=== PATIENT | male | born 2000 | race American Indian/Alaskan Native ===

== ENCOUNTER 2024-05-24 23:58 | Emergency (ER) | payer OTHER ==
[~2024-05-24] VITALS: Ht 188 cm; Wt 159.2 kg
[2024-05-25] MEDS ORDERED: AMOX-115 PO (00:35)
[2024-05-25 00:39] VITALS: BP 147/87; PULSE 102; RESP 16; TEMP 98.4; O2SAT 97
[2024-05-25] MEDS: amox tr/potassium clavulanate 500mg/125mg TAB PO ONE (00:48)
[2024-05-25] MEDS: ondansetron 4mg rapidly disintigrating tab PO ONE (00:48)
[2024-05-25] MEDS: TETanus/Pertussis (Acell)/Diphther VAC/PF (Tdap-Adult) 0.5ml syringe IMVAC ONE (00:50)
== END 2024-05-25 00:54 | disposition home or self-care (01) ==
LOC: ER 23:59
DX: S61.231A Puncture wound without foreign body of left index finger without damage to nail, initial encounter (principal); W53.11XA Bitten by rat, initial encounter; Y93.89 Activity, other specified; Y92.89 Other specified places as the place of occurrence of the external cause; Y99.8 Other external cause status
CPT/HCPCS: 90471; 90715; 99283